=== PATIENT | female | born 1965 | race African-American/Black ===

== ENCOUNTER → 2021-07-16 | Outpatient (CLI) | payer MEDICARE, MEDICAID ==
[~2021-07-16] MED LIST: LIDOCAINE HCL 1% 20ML VIAL (Pyxis) INJ ONE; SODIUM BICARBONATE 4% (2.4MEQ) 5ML VIAL IV ONE
== END | disposition home or self-care (01) ==
LOC: RAD 08:11
DX: R92.8 Other abnormal and inconclusive findings on diagnostic imaging of breast (principal); Z79.899 Other long term (current) drug therapy; Z20.822 Contact with and (suspected) exposure to COVID-19
CPT/HCPCS: 19281; 87426; J3490

== ENCOUNTER → 2021-07-20 | Outpatient (CLI) | payer MEDICARE, MEDICAID | END | disposition home or self-care (01) | LOC: LAB 10:16 | DX: Z01.812 Encounter for preprocedural laboratory examination (principal); Z20.822 Contact with and (suspected) exposure to COVID-19 | CPT/HCPCS: 87426 ==

== ENCOUNTER → 2021-07-21 | Day surgery (SDC) | payer MEDICARE, MEDICAID ==
[~2021-07-21] VITALS: Ht 154.9 cm; Wt 66.2 kg
[~2021-07-21] MED LIST changes: +BUPIVACAINE HCL/PF 0.5% (5MG/ML) 10ML ONE; +CEFAZOLIN SODIUM 1000MG/VIAL ONE; +FENTANYL CITRATE/PF 50MCG/ML 2ML VIAL ONE; +HYDROCODONE/ACETAMINOPHEN 5/325MG TABLET PO PRN; +HYDROMORPHONE HCL/PF 2MG/ML CPJ IV PRN; +KETOROLAC 30MG/ML VIAL ONE; +LACTATED RINGERS 1,000 ML IV SCH; -LIDOCAINE HCL 1% 20ML VIAL (Pyxis) INJ ONE; +MEPERIDINE HCL/PF 25MG/ML CPJ IV PRN; +METHYLENE BLUE 50 MG/10 ML AMP IV ONE; +MIDAZOLAM HCL 2 MG/2 ML VIAL ONE; +ONDANSETRON HCL 4MG/2ML INJ IV PRN; +ONDANSETRON HCL 4MG/2ML INJ ONE; +PROPOFOL 200MG/20ML VIAL IV ONE; +SKIN ADHESIVE 0.7 GM EA TOP ONE; -SODIUM BICARBONATE 4% (2.4MEQ) 5ML VIAL IV ONE
[2021-07-21 10:26] VITALS: BP 107/74
== END | disposition home or self-care (01) ==
LOC: OR 07:01
PROVIDERS: ATTEND Surgery
DX: R92.8 Other abnormal and inconclusive findings on diagnostic imaging of breast (principal); D05.12 Intraductal carcinoma in situ of left breast; I10 Essential (primary) hypertension; E78.00 Pure hypercholesterolemia, unspecified; D64.9 Anemia, unspecified; Z79.899 Other long term (current) drug therapy; Z98.890 Other specified postprocedural states
CPT/HCPCS: 19301; 76098; 88307; J0690; J1885; J2250; J2405; J2704; J3010; J3490; Q9968